=== PATIENT | female | born 1975 | race Caucasian/White ===

== ENCOUNTER 2016-09-19 17:42 | Emergency (ER) | payer OTHER ==
[~2016-09-19 17:42] MED LIST: CLEOCIN HCL300 M1 PO; LEVAQUIN PO; MOTRIN PO; NO MEDICATIONS; NORCO 7.5/325 T1 TAB PO; TYLENOL COLD CA1 TA1 PO; ULTRAM PO
== END 2016-09-19 18:19 | disposition home or self-care (01) ==
LOC: SED 17:42
DX: F43.23 Adjustment disorder with mixed anxiety and depressed mood (principal); I10 Essential (primary) hypertension; Z91.14 Patient's other noncompliance with medication regimen; F17.200 Nicotine dependence, unspecified, uncomplicated; Z88.0 Allergy status to penicillin
CPT/HCPCS: 99283

== ENCOUNTER 2016-11-09 17:32 | Emergency (ER) | payer BC ==
--- NOTE | ~2016-11-09 | CR282 ---
[facility]. [facility] A Service of [facility] RADIOLOGY TEXT RESULTS PATIENT: RODRIGO DAY LOCATION: SED : 79 UNIT #: [id number] AGE: [address]: LIBERTAD HANDLEY SEX: F ORDER DR: [id number] [address] [address] [id number] E MR#: [id number] Acc #: [id number] NAME: RODRIGO DAY : 1975 SEX: F STUDY DATE/TIME: 11/09/2016 17:40 UNIT: SED ROOM: STUDY DESCRIPTION: CR Wrist Min 3 View Rt Ordering Physician: Nickolas Westbrook M.D. MEDICAL IMAGING REPORT This report is preliminary unless electronic signature is present. EXAM Right wrist 3 views 11/09/2016 HISTORY Right wrist pain and swelling and bruising status post fall backwards, caught self with right hand and wrist 2 days ago. FINDINGS 3 views of the right wrist demonstrate impacted fracture of the distal radius. There is a displaced fracture through the base of the ulnar styloid process. The bones are normally mineralized. There is soft tissue swelling about the right wrist. IMPRESSION 1. Impacted fracture through the distal radius. 2. Displaced fracture through the base of the ulnar styloid process. Dictated by... Chava Ellis M.D. THIS IS AN ELECTRONICALLY VERIFIED REPORT Chava Ellis M.D. at 11/10/2016 3:39 PM KRT/pcl TD: 11/09/2016 21:16 JOB #: [id number] MEDICAL IMAGING REPORT Page 1 of 1
--- NOTE | ~2016-11-09 | CR133 ---
[facility] A Service of [facility] RADIOLOGY TEXT RESULTS PATIENT: RODRIGO DAY LOCATION: SED : [birth year] UNIT #: [id number] AGE: [address]: LIBERTAD HANDLEY SEX: F ORDER DR: [id number] [address] [address] [id number] E MR#: [id number] Acc #: [id number] NAME: RODRIGO DAY : 1975 SEX: F STUDY DATE/TIME: 11/09/2016 17:40 UNIT: SED ROOM: STUDY DESCRIPTION: CR Forearm 2 View Rt Attending Physician: Libertad Handley Referring Physician: Staff Doctor Not On Ordering Physician: Nickolas Westbrook M.D. Primary Care Physician: No Primary Care Physician MEDICAL IMAGING REPORT This report is preliminary unless electronic signature is present. EXAM Right forearm series. DATE OF EXAM 11/09/2016 HISTORY Pain, bruising 2 days duration. Fell backwards and caught self with hand. FINDINGS AP and lateral radiographs of the right forearm are presented. There is a small chip fracture from the coronoid process of ulna suggested on the lateral view. The fracture fragment measures about 2-5 mm cyst in diameter. Not significantly distracted or displaced. On these images, the elbow joint is normally located and aligned. There is a comminuted intraarticular fracture of the distal radius. The dominant fracture plane is transverse at a level approximately 6 mm from the articular surface of the radius. I believe that there is at least 1 longitudinally oriented fracture plane extending into the radiocarpal joint. The dominant radial fracture fragments are not significantly distracted or displaced. No significant angulation. There is a complete, mildly distracted fracture of the ulnar styloid process. No other fractures are seen. There is generalized soft tissue swelling of the forearm more pronounced along the dorsal aspect and at the wrist. No soft tissue defect, subcutaneous air or radiodense foreign body. Dictated by... Sumit Mcdonough M.D. [facility] A Service of [facility] RADIOLOGY TEXT RESULTS PATIENT: RODRIGO DAY LOCATION: SED : [birth year] UNIT #: [id number] AGE: [address]: LIBERTAD HANDLEY SEX: F ORDER DR: THIS IS AN ELECTRONICALLY VERIFIED REPORT Sumit Mcdonough M.D. at 11/10/2016 2:14 PM Maite TD: 11/09/2016 21:43 JOB #: [id number] MEDICAL IMAGING REPORT Page 1 of 1
== END 2016-11-09 18:39 | disposition home or self-care (01) ==
LOC: SED 17:32
DX: S52.571A Other intraarticular fracture of lower end of right radius, initial encounter for closed fracture (principal); S52.611A Displaced fracture of right ulna styloid process, initial encounter for closed fracture; I10 Essential (primary) hypertension; F17.210 Nicotine dependence, cigarettes, uncomplicated; Z88.0 Allergy status to penicillin; W01.0XXA Fall on same level from slipping, tripping and stumbling without subsequent striking against object, initial encounter; Y92.009 Unspecified place in unspecified non-institutional (private) residence as the place of occurrence of the external cause
CPT/HCPCS: 29125; 73090; 73110; 99283

== ENCOUNTER 2016-11-22 05:43 | Inpatient (IN) | payer BC ==
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
--- NOTE | ~2016-11-22 | CR282 ---
[facility] A Service of [facility] RADIOLOGY TEXT RESULTS PATIENT: BUFFY MCDANIEL LOCATION: [place] [address] : [birth year] UNIT #: [id number] AGE: [address]: Chava Quintanilla MD SEX: F ORDER DR: [id number] [facility] [address] [place], [place] [address] [id number] O MR#: [id number] Acc #: [id number] NAME: RODRIGO DAY : 1975 SEX: F STUDY DATE/TIME: 11/22/2016 7:33 UNIT: [facility] ROOM: STUDY DESCRIPTION: CR Wrist Min 3 View Rt Attending Physician: Chava Quintanilla M.D. Ordering Physician: Chava Quintanilla M.D. Primary Care Physician: Primary Care Physician No MEDICAL IMAGING REPORT This report is preliminary unless electronic signature is present EXAM C-arm fluoroscopy with 3 permanent images of the right wrist 11/22/2016. HISTORY ORIF right radius fracture. FINDINGS C-arm fluoroscopy was provided for use in the operating room. 3 spot film radiographs of the right wrist were obtained in the anterior and lateral projections documenting placement of surgical plate and screws across the fracture of the distal radius. The bones appear in anatomic alignment. Displaced fracture of the ulnar styloid process is also noted. 45 seconds of fluoroscopy time was utilized. Dictated by... Chava Ellis M.D. THIS IS AN ELECTRONICALLY VERIFIED REPORT Chava Ellis M.D. at 11/28/2016 8:07 AM CHAVEZ/mayito TD: 11/22/2016 09:20 JOB #: [id number] MEDICAL IMAGING REPORT Page 1 of 1 COPY
[2016-11-22] MEDS ORDERED: NO MEDICATIONS (06:09)
[2016-11-22 09:42] LABS: AMPHETAMINE POS (NEG); BARBITURATES NEG (NEG); BENZODIAZEPINES POS (NEG); COCAINE NEG (NEG); MARIJUANA NEG (NEG); OPIATES NEG (NEG); TRICYCLIC ANTIDEPRESSANTS NEG (NEG); U METHADONE NEG (NEG)
== END 2016-11-22 17:06 | disposition home or self-care (01) | DRG 908 ==
LOC: CSUR 05:43 → CPACUOF 07:20 → CSUR 07:30 → CPACUOF 09:25 → C4B 13:00 → CPACUOF 13:00 → C4B 17:06
PROVIDERS: Orthopaedic Surgery
PROC: 0PSH04Z Reposition Right Radius with Internal Fixation Device, Open Approach (ICD-10-PCS; principal; 2016-11-22 07:30)
DX: T76.11XA Adult physical abuse, suspected, initial encounter (principal); S52.551A Other extraarticular fracture of lower end of right radius, initial encounter for closed fracture; Z88.0 Allergy status to penicillin; Z90.49 Acquired absence of other specified parts of digestive tract; X58.XXXA Exposure to other specified factors, initial encounter
CPT/HCPCS: 73110; 76000; 80307; 84703; C1713; J0131; J2250; J2405; J2795; J3010; J3370